=== PATIENT | female | born 1990 ===

== ENCOUNTER 2023-08-28 23:13 | Inpatient (IN) | payer OTHER ==
[2023-08-29] MEDS ORDERED: Oxytocin/0.9 % Sodium Chloride 30 UNIT/500 ML BAG ONE (00:10)
[2023-08-29] MEDS ORDERED: Methylergonovine 0.2 MG/1 ML Amp IM PRN (00:18)
[2023-08-29] MEDS ORDERED: Misoprostol 200 MCG Tab PO PRN (00:18)
[2023-08-29] MEDS ORDERED: Butorphanol 1 MG/ML SDV IVPUSH PRN (00:18)
[2023-08-29] MEDS ORDERED: Carboprost Tromethamine 250 MCG/1 mL Vial IM PRN (00:18)
[2023-08-29] MEDS ORDERED: Tranexamic Acid IN NACL,ISO-OS 1,000 MG in Premix Bag 1 BAG IV PRN ×2 (00:18)
[2023-08-29] MEDS ORDERED: Lidocaine 1% 50 ML MDV INJECT PRN (00:18)
[2023-08-29] MEDS ORDERED: Sodium Chloride 0.9% 2.5 ML Syringe FLUSH PRN (00:18)
[2023-08-29] MEDS ORDERED: Sodium Chloride 0.9% 20 ML SDV IV PRN (00:18)
[2023-08-29] MEDS ORDERED: Sodium Chloride 0.9% 10 ML Syringe FLUSH PRN (00:18)
[2023-08-29] MEDS ORDERED: Water For Irrigation,Sterile 1,000 ML Container IRR PRN (00:18)
[2023-08-29 00:25] LABS: HEMATOCRIT 38.3 % (37.0-47.0); HEMOGLOBIN 13.6 g/dL (12.0-16.0); MEAN CORPUSCULAR HEMOGLOBIN 30.5 pg (28.0-32.0); MEAN CORPUSCULAR HGB CONC 35.5 g/dL (32.0-36.0); MEAN CORPUSCULAR VOLUME 85.9 fL (83.0-99.0); PLATELET COUNT,PLT 225 K/uL (150-400); RED BLOOD CELL COUNT 4.46 M/uL (4.10-5.30); WHITE BLOOD CELL COUNT,WBC 12.08 K/uL (3.9-11.3)
[2023-08-29] MEDS ORDERED: Oxytocin/0.9 % Sodium Chloride 30 UNIT/500 ML BAG IV SCH (00:30)
[2023-08-29] MEDS ORDERED: Lactated Ringers 1,000 ML IV SCH (00:30)
[2023-08-29] MEDS ORDERED: Witch Hazel Medicated Pads 40/Jar TOP PRN (00:48)
[2023-08-29] MEDS ORDERED: Lanolin 100% Cream 7 GM Tube TOP PRN (00:48)
[2023-08-29] MEDS ORDERED: Benzocaine/Menthol 20%-0.5% Spray 78 GM Cannister TOP PRN (00:48)
[2023-08-29] MEDS ORDERED: Ibuprofen 800 MG Tab PO PRN (00:48)
[2023-08-29] MEDS ORDERED: Docusate Sodium 100 MG Cap PO PRN (00:48)
[2023-08-29] MEDS ORDERED: Acetaminophen 500 MG Tab PO PRN (00:48)
== END 2023-08-30 01:08 | disposition home or self-care (01) | DRG 807 ==
LOC: MW.OBCHECK 23:13 → MW.OB 23:14 → MW.OBCHECK 08-29 00:18 → MW.OB 08-29 00:18 → OBSVTOIN 08-29 00:19 → MW.OB 08-29 02:30
PROVIDERS: ADMIT Obstetrics & Gynecology Obstetrics; ATTEND Obstetrics & Gynecology Obstetrics
PROC: 10E0XZZ Delivery of Products of Conception, External Approach (ICD-10-PCS; principal; 2023-08-29)
DX: O80 Encounter for full-term uncomplicated delivery (principal); Z37.0 Single live birth; Z3A.39 39 weeks gestation of pregnancy
CPT/HCPCS: 36415; 59025; 59409; 85027; 86592; 86850; 86900; 86901; A9270-GY; J2590